=== PATIENT | male | born 1985 | race Caucasian/White ===

== ENCOUNTER → 2023-07-23 | Outpatient (CLI) | payer OTHER ==
[~2023-07-23] MED LIST: Augmentin 875-1 EACH PO; HYDACE5 PO; Zofran4 MG PO
[2023-07-28 11:23] LABS: HEMOGLOBIN A1C 5.8 % (4.8-5.6)
== END ==
LOC: LAB 17:05 → LAB SHORT 17:05
PROVIDERS: Family Medicine
DX: R73.03 Prediabetes (principal)
CPT/HCPCS: 83036